=== PATIENT | female | born 1985 | race Caucasian/White ===

== ENCOUNTER 2019-01-11 09:27 | Emergency (ER) | payer MEDICAID ==
[2019-01-11] MEDS ORDERED: Lactated Ringers 1,000 ML IV ONE ×2 (09:47→11:16)
--- NOTE | 2019-01-11 10:58 | EDM.PDOCBH ---
ED HPI GENERAL MEDICAL PROBLEM - General Chief Complaint: Drug or Alcohol Abuse Stated Complaint: [facility] Time Seen by Provider: 01/11/19 10:15 Source of Information: Reports: Patient, RN Notes Reviewed History Limitations: Reports: No Limitations - History of Present Illness INITIAL COMMENTS - FREE TEXT/NARRATIVE: Patient is a 33-year-old female who presents to the ED via [facility] for the evaluation of a possible overdose. The patient states that at 845 this morning she thought she took around 16 tablets of her 50 mg trazodone tablets in attempts to just go to sleep. 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 She states that she had 8 shots of vodka last night with the last drink being at around 2145. The patient states that she and her boyfriend woke up early at around 6 AM this morning, and started fighting immediately. She states that this induced increased anxiety and states she did not want to fight with her boyfriend, so she took a couple more tablets than she normally would of her trazodone in attempts to just go back to bed as she did not want to fight with her boyfriend. When asked if she was trying to end her life she denies this multiple times. She further denies any sort of auditory or visual hallucinations. She states she does not have a normal counselor, psychologist or psychiatrist that she sees. She was prescribed this medication by a provider in [place]. The patient states that after she took the medication lay down to sleep she felt as if her heart were racing, so she directed her boyfriend to call 911 so they could bring her to the ER, as she was scared she may have taken too much medication. She states she also made herself puke shortly after the ingestion and noticed some pill residue in the toilet. - Related Data Allergies Allergy/AdvReac Type Severity Reaction Status Date / Time cefaclor [From [facility]] Allergy Hives Verified 01/11/19 09:36 Home Meds: Home Meds Cyclobenzaprine [Flexeril] 5 mg PO TID PRN 01/11/19 [History] Norgestimate-Ethinyl Estradiol [Tri-Sprintec] 1 each PO DAILY 01/11/19 [History] traZODone HCl [Trazodone HCl] 25 - 50 mg PO BEDTIME PRN 01/11/19 [History] Social & Family History - Tobacco Use Smoking Status *Q: Current Every Day Smoker Years of Tobacco use: 20 Packs/Tins Daily: 0.3 - Caffeine Use Caffeine Use: Reports: Coffee, Tea - Alcohol Use Days Per Week of Alcohol Use: 4 Number of Drinks Per Day: 5 Total Drinks Per Week: 20 - Recreational Drug Use Recreational Drug Use: Yes Drug Use in Last 12 Months: Yes Recreational Drug Type: Reports: Marijuana/Hashish ED ROS GENERAL - Review of Systems Review Of Systems: See Below Constitutional: Denies: Fever, Chills HEENT: Reports: No Symptoms Respiratory: Reports: No Symptoms Cardiovascular: Reports: No Symptoms Endocrine: Reports: No Symptoms GI/Abdominal: Reports: Vomiting (self induced) : Reports: No Symptoms Musculoskeletal: Reports: No Symptoms Skin: Reports: No Symptoms Neurological: Reports: No Symptoms Psychiatric: Reports: Anxiety. Denies: Suicidal Ideation Hematologic/Lymphatic: Reports: No Symptoms ED EXAM, BEHAVIORAL HEALTH - Physical Exam Exam: See Below Exam Limited By: No Limitations General Appearance: Alert, WD/WN, No Apparent Distress (Patient is balled up on the ER caught, she is sleepy but easily arousable.) Eye Exam: Bilateral Eye: EOMI, Normal Inspection, PERRL Respiratory/Chest: No Respiratory Distress, Lungs Clear, Normal Breath Sounds, No Accessory Muscle Use, Chest Non-Tender Cardiovascular: Normal Peripheral Pulses, Regular Rate, Rhythm, No Murmur GI/Abdominal: Normal Bowel Sounds, Soft, Non-Tender, No Distention, No Mass Extremities: Normal Inspection, Normal Capillary Refill Neurological: Alert, Normal Mood/Affect, CN II-XII Intact (grossly), Normal Cognition, Normal Reflexes, No Motor/Sensory Deficits, Oriented x 3 Psychiatric: Alert, Normal Affect, Normal Cognition, Normal Mood, Oriented. No : Withdrawn, Suicidal Plan, Suicidal Thoughts, Auditory Hallucinations, Visual Hallucinations, Paranoid Thoughts Skin Exam: Warm, Dry, Intact, Normal color, No rash EKG INTERPRETATION EKG Date: 01/11/19 Time: 09:59 Rhythm: NSR Rate (Beats/Min): 89 [place]: Normal P-Wave: Present QRS: Normal ST-T: Normal QT: Normal Comparison: NA - No Prior EKG EKG Interpretation Comments: Reviewed by myself and Dr. Bean. No acute changes or abnormalities. COURSE, BEHAVIORAL HEALTH COMP - Course Vital Signs: Last Vital Signs Temp 97.4 F 01/11/19 09:38 Pulse 112 H 01/11/19 13:01 Resp 16 01/11/19 13:01 BP 94/66 01/11/19 13:00 Pulse Ox 97 01/11/19 13:01 Orders, Labs, Meds: Active Orders 24 hr Category Date Time Status EKG Documentation Completion [RC] ROUTINE Care 01/11/19 09:51 Active SALICYLATE [CHEM] Routine Lab 01/11/19 09:38 Received Laboratory Tests 01/11/19 01/11/19 01/11/19 Range/Units 09:38 12:36 12:36 Salicylates 1.8 L (2.8-20) mg/dL Acetaminophen 0 L 0 L (10-30) ug/mL Medications Discontinued Medications Generic Name Dose Route Start Last Admin Trade Name Freq PRN Reason Stop Dose Admin Lactated Ringer's 1,000 mls @ 999 mls/hr 01/11/19 09:47 01/11/19 09:48 Ringers, Lactated IV 01/11/19 10:47 999 mls/hr .BOLUS ONE Administration Lactated Ringer's 1,000 mls @ 999 mls/hr 01/11/19 11:16 01/11/19 11:19 Ringers, Lactated IV 01/11/19 12:16 999 mls/hr .BOLUS ONE Administration Discharge vs Psych Eval/Treatment:: 01/11/19 10:25 Patient presents to the ED for the evaluation of a possible overdose. Upon speaking with the patient I strongly believe this was not an attempt to end her life, and that she was just trying to sleep and not fight with her boyfriend. Herminia RN did call poison control and got general recommendations for a possible trazodone overdose. She did put in the labs and exams deemed appropriate by poison control. Will likely monitor the patient's status and labs and discharge home when she is safe to do so. 01/11/19 13:40 Patient's labs have returned and do not demonstrate any sort of acute abnormalities at this time, poison control did call back and do not have any other further concerns recommendations at the time and state that she is likely to be discharged home with no further workup needed. The patient did have some hypotension during today's ER visit, but the patient states that her systolic blood pressures usually in the 90s, and this is not worrisome to her. She did receive 2 bags of fluid in the ER for management of this, patient denies any sort of dizziness or other worrisome symptoms. Patient will be discharged home with general recommendations. Departure - Departure Time of Disposition: 13:41 Disposition: Home, Self-Care 01 Condition: Fair Clinical Impression: Purposeful non-suicidal drug ingestion Qualifiers: Encounter type: initial encounter Qualified Code(s): T50.902A - Poisoning by unspecified drugs, medicaments and biological substances, intentional self-harm , initial encounter - Discharge Information *PRESCRIPTION DRUG MONITORING PROGRAM REVIEWED*: No *COPY OF PRESCRIPTION DRUG MONITORING REPORT IN PATIENT MCIHELL: No Instructions: Drug Overdose Referrals: Rom Cooley MD [Primary Care Provider] - Additional Instructions: You were evaluated in the ED today for taking too much of her trazodone. Poison control was consulted on your case, some labs are drawn and your monitored for an appropriate amount of time. Your laboratory evaluation came back within normal limits, you were given IV fluids in management of your low blood pressure. You should not have any other worrisome lingering symptoms, you may feel extra drowsy for the next few hours. Recommend that you go home and sleep this off. Please return to the ED if your symptoms change or worsen.
== END 2019-01-11 13:59 | disposition home or self-care (01) ==
LOC: SUPCPDRO 09:27 → JD.ED 09:27
DX: R00.2 Palpitations (principal); T43.215A Adverse effect of selective serotonin and norepinephrine reuptake inhibitors, initial encounter; F17.210 Nicotine dependence, cigarettes, uncomplicated; Z88.1 Allergy status to other antibiotic agents
CPT/HCPCS: 36415; 80329; 93005; 96360; 96361; 99284; J7120; G0480